=== PATIENT | male | born 1940 | race Caucasian/White ===

== ENCOUNTER → 2017-01-28 | Outpatient (CLI) | payer BC ==
[~2017-01-28] MED LIST: ACET-1257 PO; ASMTWH INH; ASPI81TA28 PO; CALC500C70 PO; CALC625T PO; CMD/25 PO; DIPH25CA50 PO; DXY100 PO; FLUT50SP14 NAE; GLUC500C60; HYZ/10015 PO; MULT-506 PO; OMEP40CA41 PO; SIMV20TA5 PO; WARF5TAB90 PO
== END | disposition home or self-care (01) ==
LOC: C.LAB1850 09:06
PROVIDERS: ATTEND Urology
DX: C61 Malignant neoplasm of prostate (principal)